=== PATIENT | male | born 2000 | race Caucasian/White ===

== ENCOUNTER 2018-06-24 10:37 | Emergency (ER) | payer OTHER ==
[~2018-06-24] VITALS: Ht 177.8 cm; Wt 72.6 kg
[2018-06-24 11:45] VITALS: BP 115/79
--- NOTE | 2018-06-24 15:17 | EKG ---
[place] [address] ELECTROCARDIOGRAM REPORT Name: MEREDITH MCQUEEN Room: [facility] Tori#: [id number] Admission: 06/24/18 Attend Phys: Discharge: 06/24/18 Date of : [birth year] Report #: [id number] THIS REPORT FOR: //name// [facility] ED Test Date: 2018-06-24 Test Time: 10:40:41 Pat Name: MEREDITH MCQUEEN Department: Room: Gender: M [employer]: : 2000 Requested By: Cleo Allison Order Number: [id number] MD: Leon Smith Measurements Intervals [place] Rate: 73 P: 69 MI: 143 QRS: 72 QRSD: 100 T: 45 QT: 371 QTc: 409 Interpretive Statements Sinus rhythm ST elev, probable normal early repol pattern No previous ECG available for comparison Electronically Signed On 06-24-2018 15:17:28 CDT by Leon Smith [email or web address] <ELECTRONICALLY SIGNED> By: Leon Smith MD, [facility] 06/24/18 1517 1040 1040 Leon Smith MD, FACC /EPI
== END 2018-06-24 11:46 | disposition home or self-care (01) ==
LOC: M.ERS 10:37
DX: R55 Syncope and collapse (principal); R53.1 Weakness